=== PATIENT | female | born 1980 | race Two or more races ===

== ENCOUNTER 2017-09-15 14:38 | Emergency (ER) | payer SELFPAY ==
[~2017-09-15] VITALS: Ht 149.9 cm; Wt 56.7 kg
[2017-09-15] MEDS ORDERED: ACETAMINOPHEN325 M1 ORAL (15:31)
--- NOTE | 2017-09-15 15:37 | Emergency Room Report ---
History of Present Illness General Chief Complaint: Headache Source: Patient Present Illness HPI 36 yo female patient presents to ER complaining of MATTHEWS x1 week. Reports MATTHEWS increased in past few days. Reports generalized MATTHEWS. Reports hx of MATTHEWS, reports seen by PCP 1 year ago; states was told to report to ER if symptoms persist. Reports taking Tylenol with mild relief of symptoms. Denies trauma or injury. Denies vision changes. Denies nausea, vomiting. Denies chest pain, SOB, fever. Denies hx of cardiovascular disease. Denies abdominal pain, diarrhea, dysuria, hematuria. Reports LMP last week, normal. Allergies: Coded Allergies: No Known Allergies (Unverified , 04/27/13) Patient History Past Medical History: see triage record Last Menstrual Period: 09/10/17 Reviewed Nursing Documentation: PMH: Agreed; PSxH: Agreed Nursing Documentation-PMH Past Medical History: No Stated History Review of Systems All Other Systems: negative except mentioned in HPI Physical Exam Vital Signs Date Time Temp Pulse Resp B/P (MAP) Pulse Ox O2 Delivery O2 Flow Rate FiO2 09/15/17 15:28 98.0 65 19 122/76 97 Room Air 98.1 Sp02 EP Interpretation: reviewed, normal General Appearance: well appearing, no apparent distress, alert, GCS 15, non- toxic Head: normocephalic, atraumatic Eyes: bilateral eye normal inspection, bilateral eye PERRL ENT: hearing grossly normal, normal pharynx, no angioedema, normal voice, TMs + canals normal, uvula midline, moist mucus membranes Neck: full range of motion, no bony tend Respiratory: lungs clear, normal breath sounds, no rhonchi, no respiratory distress, no accessory muscle use, no wheezing, speaking full sentences Cardiovascular #1: regular rate, rhythm, no edema Gastrointestinal: non tender, soft, no mass, non-distended, no guarding, no rebound Genitourinary: no CVA tenderness Musculoskeletal: back normal, digits/nails normal, gait/station normal, normal range of motion, non-tender, no calf tenderness Neurologic: alert, oriented x3, responsive, 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 Puentes is my supervising Physician whom patient management has been discussed with. Diagnostic Impression: Primary Impression: Headache ER Course Pt presents to ED c/o headache. DDX considered but are not limited to migraine, cluster MATTHEWS, tension MATTHEWS, meningitis, ICH, meningitis, HTN, influenza, UTI. Negative Kernig, negative Brudzinski, low suspicion for meningitis. Hx of MATTHEWS, no neuro deficits, no vision changes, does not require CT of head at this time. VITAL SIGNS are WNL, patient is afebrile Ordered medication and UA. ER COURSE Metoclopramide 10mg IM for pain, N/V; possible SE: tics, spasm; CI seizures, HTN Benadryl 25mg IM ; possible SE: drowsiness UA negative for nitrites, few WBC, few epithelial cells, low suspicion for UTI. Does not require abx at this time. Patient reports pain improved. Instructed to followup with neuro. Patient is AOx3, neurologically intact, nontoxic appearing, and ambulatory. DISCHARGE: -Rx provided Excedrin At this time pt is stable for d/c to home. Patient is resting comfortably, in no acute distress, nontoxic appearing, talking and smiling. Will provide with patient care instructions and any necessary prescriptions. Patient to take medication as instructed. Care plan and follow-up instructions provided. Patient questions asked and answered. Patient instructed to follow-up with primary care provider in the next 3 days and discuss further referral with PCP to neurologist. ER precautions given. Patient instructed to return to ER immediately for any new or worsening of symptoms including but not limited to fever, neck stiffness , vision changes, and neurological symptoms. Labs Test 09/15/17 15:39 Urine Color Pale yellow Urine Appearance Clear Urine pH 6 (4.5-8.0) Urine Specific Rombauer 1.010 (1.005-1.035) Urine Protein Negative (NEGATIVE) Urine Glucose (UA) Negative (NEGATIVE) Urine Ketones Negative (NEGATIVE) Urine Occult Blood 3+ (NEGATIVE) Urine Nitrite Negative (NEGATIVE) Urine Bilirubin Negative (NEGATIVE) Urine Urobilinogen Normal MG/DL (0.0-1.0) Urine Leukocyte Esterase 1+ (NEGATIVE) Urine RBC 2-4 /HPF (0 - 2) Urine WBC 0-2 /HPF (0 - 2) Urine Squamous Epithelial Cells Few /LPF (NONE/OCC) Urine Bacteria Few /HPF (NONE) Last Vital Signs Date Time Temp Pulse Resp B/P (MAP) Pulse Ox O2 Delivery O2 Flow Rate FiO2 09/15/17 15:28 98.0 65 19 122/76 97 Room Air 98.1 Disposition: HOME, SELF-CARE Condition: Stable Scripts Aspirin/Acetaminophen/Caffeine (EXCEDRIN MIGRAINE CAPLET) 1 Each Tablet 1 EACH PO BID for 7 Days, #21 TAB Prov: Ralph Oscar 09/15/17 Patient Instructions: General Headache Without Cause Additional Instructions: Followup with primary care provider in 3 -5 days. Request referral to neuro for further diagnosis and treatment. Take medications as directed. Patient questions asked and answered. ER precautions given, patient instructed to return to ER immediately for any new or worsening of symptoms including but not limited to worsening of symptoms , vomiting, fever, chest pain, SOB. Ralph Oscar Sep 15, 2017 15:37
[2017-09-15] MEDS ORDERED: Metoclopramide 10mg/2ml Inj IM SCH (15:45)
[2017-09-15 15:49] LABS: APPEARANCE,URINE CLEAR; BILIRUBIN, URINE NEGATIVE (NEGATIVE); COLOR,URINE PALE YELLOW; GLUCOSE, URINE (UA) NEGATIVE (NEGATIVE); KETONES,URINE NEGATIVE (NEGATIVE); LEUKOCYTE ESTERASE ,URINE 1+ (NEGATIVE); NITRITE,URINE NEGATIVE (NEGATIVE); PH,URINE 6 (4.5-8.0); PROTEIN,URINE NEGATIVE (NEGATIVE); UROBILINOGEN,URINE NORMAL MG/DL (0.0-1.0)
[2017-09-15] MEDS ORDERED: EXCEDRIN MIGRA1 EAC1 PO (15:56)
[2017-09-15 16:55] VITALS: BP 122/76
[2017-09-15 17:15] VITALS: BP 122/76
== END 2017-09-15 17:15 | disposition home or self-care (01) ==
LOC: EMR 15:40
DX: R51 Headache (principal)
CPT/HCPCS: 81003; 96372; 99283; J2765